=== PATIENT | male | born 1980 | race African-American/Black ===

== ENCOUNTER 2024-01-05 15:10 | Emergency (ER) | payer OTHER ==
[~2024-01-05] VITALS: Ht 177.8 cm; Wt 110.3 kg
[2024-01-05 15:15] VITALS: TEMP 98.1; O2SAT 99
[2024-01-05] MEDS: BOOSTRIX VACCINE (TETANUS/DIPHTH/ACEL. PERTUSSIS) 0.5ML SYR IM ONE (15:37)
[2024-01-05] MEDS: CEPHALEXIN 500 MG CAP PO ONE (16:19)
[2024-01-05] MEDS ORDERED: CEPH500C PO (16:31)
[2024-01-05 16:44] VITALS: BP 150/95
== END 2024-01-05 16:53 | disposition home or self-care (01) ==
LOC: M ED 15:10
DX: S61.236A Puncture wound without foreign body of right little finger without damage to nail, initial encounter (principal); W29.8XXA Contact with other powered hand tools and household machinery, initial encounter; F43.10 Post-traumatic stress disorder, unspecified; I10 Essential (primary) hypertension; Z79.2 Long term (current) use of antibiotics; Z23 Encounter for immunization; Y99.9 Unspecified external cause status; Y92.9 Unspecified place or not applicable; Y93.89 Activity, other specified

== ENCOUNTER → 2024-03-23 | Outpatient (CLI) | payer OTHER ==
[~2024-03-23] MED LIST: CEPH500C PO
== END ==
LOC: M PLAIMG 13:21
PROVIDERS: ATTEND Registered Nurse
DX: M54.50 Low back pain, unspecified (principal); M51.34 Other intervertebral disc degeneration, thoracic region; M51.369 Other intervertebral disc degeneration, lumbar region without mention of lumbar back pain or lower extremity pain; M50.30 Other cervical disc degeneration, unspecified cervical region